=== PATIENT | female | born 1990 | race African-American/Black ===

== ENCOUNTER 2016-03-18 16:38 | Inpatient (IN) | payer OTHER ==
[~2016-03-18] VITALS: Ht 165.1 cm; Wt 75.2 kg
[2016-03-18 16:41] VITALS: BP 142/96; PULSE 94; RESP 16; TEMP 99.2; O2SAT 97
[2016-03-18 17:00] VITALS: BP 149/92; PULSE 90; RESP 16; O2SAT 98
[2016-03-18] MEDS ORDERED: SODIUM CHLORIDE 0.9% FLUSH 5 ML FLUSH IVF PRN (17:15)
[2016-03-18] MEDS ORDERED: MORPHINE SULFATE 4 MG/ML INJ IV PUSH ONE (17:15)
[2016-03-18] MEDS ORDERED: ONDANSETRON HCL 4 MG/2 ML VIAL IVP ONE (17:15)
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
[2016-03-18 17:26] VITALS: RESP 16; O2SAT 98
[2016-03-18 17:39] LABS: AUTOMATED NEUTROPHIL # 12.9 TH/MM3 (1.8-7.7); BASOPHIL % 0.3 % (0.0-2.0); EOSINOPHIL # 0.1 TH/MM3 (0-0.4); EOSINOPHIL % 0.6 % (0.0-4.0); HEMATOCRIT 41.8 % (35.0-46.0); HEMO FLAGS DIFF FINAL; LYMPH % 9.5 % (9.0-44.0); LYMPHOCYTE # 1.5 TH/MM3 (1.0-4.8); MEAN CELL VOLUME 92.7 FL (80.0-100.0); MEAN CORPUSCULAR HEMOGLOBIN 31.5 PG (27.0-34.0); MEAN CORPUSCULAR HGB CONC 33.9 % (32.0-36.0); MONO % 10.3 % (0.0-8.0); NEUT % 79.3 % (16.0-70.0); PLATELET COUNT 304 TH/MM3 (150-450); RED CELL DISTRIBUTION WIDTH 12.6 % (11.6-17.2); WHITE BLOOD COUNT 16.3 TH/MM3 (4.0-11.0)
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
[2016-03-18 17:52] LABS: APTT (PATIENT) 26.2 SEC (24.3-30.1); PROTHROMBIN TIME - PATIENT 10.8 SEC (9.8-11.6)
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
[2016-03-18 18:10] LABS: BICARBONATE 27.2 MEQ/L (21.0-32.0); POTASSIUM 3.6 MEQ/L (3.5-5.1)
[2016-03-18] MEDS ORDERED: CLINDAMYCIN INJ 600 MG in SODIUM CHLORIDE 0.9% INJ 100 ML IV ONE (19:00)
[2016-03-18 19:25] VITALS: BP 138/88; PULSE 97; RESP 15; O2SAT 97
[2016-03-18] MEDS ORDERED: SODIUM CHLORIDE 0.9% FLUSH 5 ML FLUSH FLUSH PRN (19:45)
[2016-03-18] MEDS ORDERED: ONDANSETRON HCL 4 MG/2 ML VIAL IVP PRN (19:45)
[2016-03-18] MEDS ORDERED: NALOXONE HCL 0.4 MG/ML AMP IV PRN (19:45)
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
[2016-03-18 20:11] LABS: BACTERIA, URINE OCC /hpf; BLOOD, URINE SMALL (NEG); COMMENT (UR) CULT NOT INDICATED; CULTURE IF INDICATED CULT NOT INDICATED; GLUCOSE,URINE NEG (NEG); KETONE, URINE 10 mg/dL (NEG); MUCUS URINE FEW /lpf (OCC); NITRITE,URINE NEG (NEG); SQUAMOUS EPITHELIAL CELL URINE 30 /hpf (0-5); URINE COLOR YELLOW (YELLW/STRAW)
[2016-03-18] MEDS: SODIUM CHLORIDE 0.9% FLUSH 5 ML FLUSH FLUSH SCH (21:34)
[2016-03-18] MEDS: MORPHINE SULFATE 4 MG/ML INJ IV PUSH PRN (22:55)
[2016-03-18] MEDS: CLINDAMYCIN INJ 900 MG in SODIUM CHLORIDE 0.9% INJ 100 ML IV SCH (23:07)
[2016-03-19] VITALS (8 sets, daily range): BP systolic 100–164; BP diastolic 49–103; PULSE 71–97; RESP 16–20; TEMP 96.6–99.7; O2SAT 96–100
[2016-03-19] MEDS ORDERED: SODIUM CHLOR 0.9% 1000 ML INJ 1,000 ML IV SCH (01:00)
[2016-03-19] MEDS: MORPHINE SULFATE 4 MG/ML INJ IV PUSH PRN ×6 (02:06→21:53)
[2016-03-19] MEDS: CLINDAMYCIN INJ 900 MG in SODIUM CHLORIDE 0.9% INJ 100 ML IV SCH ×3 (05:16→18:55)
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
[2016-03-19] MEDS ORDERED: MAGNESIUM HYDROXIDE SUSP 30 ML CUP PO PRN (08:15)
[2016-03-19] MEDS ORDERED: ONDANSETRON HCL 4 MG/2 ML VIAL IVP PRN (08:15)
[2016-03-19] MEDS ORDERED: BISACODYL 10 MG SUPP PR PRN (08:15)
[2016-03-19] MEDS ORDERED: SENNOSIDES 8.6 MG TAB PO PRN (08:15)
[2016-03-19] MEDS ORDERED: ACETAMINOPHEN 325 MG TAB PO PRN (08:15)
[2016-03-19] MEDS ORDERED: MORPHINE SULFATE 4 MG/ML INJ IV PRN (08:15)
[2016-03-19] MEDS: SODIUM CHLORIDE 0.9% FLUSH 5 ML FLUSH FLUSH SCH ×2 (08:17→20:01)
[2016-03-19] MEDS: DOCUSATE SODIUM 100 MG CAP PO SCH ×2 (10:05→20:00)
[2016-03-19] MEDS: NS + KCL 20 MEQ INJ 1,000 ML IV SCH ×2 (10:05→18:55)
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
[2016-03-19] MEDS ORDERED: HYDR1ELX PO (10:43)
[2016-03-19] MEDS ORDERED: methylPREDNISolone SOD SUCC 125 MG/2 ML VIAL IV PUSH ONE (10:45)
[2016-03-19] MEDS ORDERED: PROPOFOL 200 MG/20 ML AMP IV ONE (12:00)
[2016-03-19] MEDS ORDERED: LACTATED RINGER'S 1000 ML INJ 1,000 ML IV ONE ×2 (12:00)
[2016-03-19] MEDS ORDERED: PHENYLEPH/NS 1000 MCG/10 ML SYR IV ONE (12:00)
[2016-03-19] MEDS ORDERED: NEOSTIGMINE 3 MG/3 ML SYR IV ONE (12:00)
[2016-03-19] MEDS ORDERED: ONDANSETRON HCL 4 MG/2 ML VIAL IV PUSH ONE ×2 (12:00)
[2016-03-19] MEDS ORDERED: LIDOCAINE 2%/EPINEPHrine 1:100,000 30ML MDV ONE (15:18)
[2016-03-19] MEDS ORDERED: FAMOTIDINE 20 MG/2 ML VIAL ONE (15:19)
[2016-03-19] MEDS ORDERED: MIDAZOLAM HCL 2 MG/2 ML VIAL ONE (15:19)
[2016-03-19] MEDS ORDERED: ACETAMINOPHEN 1000 MG/100 ML VIAL IV ONE (15:19)
[2016-03-19] MEDS ORDERED: fentaNYL CITRATE 250 MCG/5 ML AMP ONE (15:19)
[2016-03-19] MEDS ORDERED: CHLORHEXIDINE GLUCONATE 0.12% 30 ML CUP ONE (15:20)
[2016-03-19] MEDS ORDERED: MICROFIBRILLAR COLLAGEN HEMOSTAT 1 GM PKT ONE (16:41)
[2016-03-19] MEDS ORDERED: *MEPERIDINE 25 MG INJ VIAL PERIprocedural Use ONLY ONE (17:55)
[2016-03-19] MEDS ORDERED: *LABETALOL HCL 100 MG/20 ML VIAL PERIprocedural Use ONLY ONE (18:00)
[2016-03-19] MEDS ORDERED: DO NOT ADM ANY ANTICOAGULANT DRUGS XX PRN (18:00)
[2016-03-19] MEDS: methylPREDNISolone SOD SUCC 125 MG/2 ML VIAL IV SCH (18:12)
[2016-03-19] MEDS ORDERED: ACETAMINOPHEN/HYDROcodone 325 MG/7.5 MG TAB PO PRN (18:15)
[2016-03-19] MEDS ORDERED: *morphine SULFATE 8 MG/ML PERIprocedure ONLY ONE (18:33)
[2016-03-20] VITALS: BP 157/96; PULSE 80; RESP 17; TEMP 97.3; O2SAT 97
[2016-03-20] MEDS: MORPHINE SULFATE 4 MG/ML INJ IV PUSH PRN ×4 (00:01→08:55)
[2016-03-20] MEDS: CLINDAMYCIN INJ 900 MG in SODIUM CHLORIDE 0.9% INJ 100 ML IV SCH ×2 (00:01→05:49)
[2016-03-20] MEDS: methylPREDNISolone SOD SUCC 125 MG/2 ML VIAL IV SCH ×2 (00:02→05:48)
[2016-03-20 04:00] VITALS: BP 151/98; PULSE 87; RESP 18; TEMP 96.5; O2SAT 98
--- NOTE | 2016-03-20 07:03 | HHI.PR ---
Subjective Remarks pod 1 s/p orif b/l mandible fractures pt seen and examined today, nurse at bedside AAOx3, NAD ambulating . tolerating po, voiding no complaints Objective Vital Signs Date Time Temp Pulse Resp B/P Pulse Ox O2 Delivery O2 Flow Rate FiO2 03/20/16 04:00 96.5 87 18 151/98 98 03/20/16 00:00 97.3 80 17 157/96 97 03/19/16 22:14 96.6 85 16 164/95 99 03/19/16 19:15 98.8 88 16 144/80 98 Room Air 03/19/16 19:00 87 16 141/87 97 Room Air 03/19/16 18:45 85 15 145/90 96 Room Air 03/19/16 18:30 88 15 146/89 95 Room Air 03/19/16 18:15 90 15 156/92 95 Room Air 03/19/16 18:00 94 15 160/105 94 Room Air 03/19/16 17:45 98 15 156/98 93 Room Air 03/19/16 17:38 98.0 111 16 156/100 100 Simple Mask 7 03/19/16 13:53 98.6 03/19/16 13:28 140/82 03/19/16 12:15 99.0 97 20 159/103 100 03/19/16 08:00 98.9 80 18 142/96 99 I/O 03/19/16 03/19/16 03/19/16 03/20/16 03/20/16 03/20/16 07:00 15:00 23:00 07:00 15:00 23:00 Intake Total 1635 ml 1100 ml 480 ml Output Total 675 ml Balance 1635 ml 425 ml 480 ml Intake Oral 0 ml 480 ml IV Total 1635 ml 100 ml Other 1000 ml Output Urine Total 375 ml Estimated Blood Loss 300 ml # Voids 2 1 1 # Bowel Movements 0 Result Diagram: 03/18/16 1725 03/18/16 1725 Objective Remarks right facial/mandible edema greater than left trach midline, neck soft all intraoral/facial wound margins well approximated, sutures intact tissues pink/well perfused bite in occlusion all wounds hemostatic no signs of infection, bleeding, pus Assessment and Plan Assessment and Plan pod 1 s/p orif b/l mandible fractures ok to d/c to home later this morning form oms standpoint f/up [address] bedolla [phone] mechanically soft diet maintain good oral hygiene no strenuous activity/exercises ice to b/l face/ x 24 hours 20 min on 20 min off, then warm compress 20 min on 20 min off Shaun Fenton DMD Mar 20, 2016 07:03
[2016-03-20 07:37] LABS: AUTOMATED NEUTROPHIL # 14.9 TH/MM3 (1.8-7.7); BASOPHIL % 0.1 % (0.0-2.0); HEMATOCRIT 34.9 % (35.0-46.0); HEMO FLAGS DIFF FINAL; LYMPH % 3.3 % (9.0-44.0); LYMPHOCYTE # 0.5 TH/MM3 (1.0-4.8); MEAN CELL VOLUME 92.8 FL (80.0-100.0); MEAN CORPUSCULAR HEMOGLOBIN 32.2 PG (27.0-34.0); MEAN CORPUSCULAR HGB CONC 34.7 % (32.0-36.0); MONO % 5.8 % (0.0-8.0); NEUT % 90.8 % (16.0-70.0); PLATELET COUNT 286 TH/MM3 (150-450); RED BLOOD COUNT 3.76 MIL/MM3 (4.00-5.30); RED CELL DISTRIBUTION WIDTH 12.3 % (11.6-17.2); WHITE BLOOD COUNT 16.5 TH/MM3 (4.0-11.0)
[2016-03-20 07:43] LABS: BICARBONATE 24.9 MEQ/L (21.0-32.0); MAGNESIUM 1.7 MG/DL (1.5-2.5); POTASSIUM 3.7 MEQ/L (3.5-5.1)
[2016-03-20 08:00] VITALS: PULSE 68; RESP 18; TEMP 98.1; O2SAT 97
[2016-03-20 08:30] VITALS: O2SAT 98
[2016-03-20] MEDS: DOCUSATE SODIUM 100 MG CAP PO SCH (08:55)
[2016-03-20] MEDS: SODIUM CHLORIDE 0.9% FLUSH 5 ML FLUSH FLUSH SCH (08:59)
[2016-03-20] MEDS: NS + KCL 20 MEQ INJ 1,000 ML IV SCH (09:00)
[2016-03-20 09:59] VITALS: BP 140/82
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
[2016-03-20] MEDS ORDERED: ACETAMINOPHEN 325MG/HYDROcodone 7.5MG/15ML UDC PO PRN ×2 (11:00)
[2016-03-20 12:00] VITALS: BP 111/70; PULSE 48; RESP 20; TEMP 97.9; O2SAT 97
[2016-03-20] MEDS ORDERED: methylPREDNISolone ACETATE 80 MG/ML VIAL IM ONE (12:00)
[2016-03-20 13:38] LABS: HEMOGLOBIN A1a 1.1 %; HEMOGLOBIN A1b 0.7 %; HEMOGLOBIN Ao 86.3 %; HEMOGLOBIN F 0.8 %; HEMOGLOBIN LA1C 2.4 %; HEMOGLOBIN P3 3.6 %
[2016-03-20] MEDS ORDERED: CEPHALEXIN MONOHYDRATE SUSP 250 MG/5 ML 100 ML BTL PO SCH (14:00)
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
== END 2016-03-20 15:52 | disposition home or self-care (01) | DRG 132 ==
LOC: NEPC 16:38 → NEDA 19:36 → OBSVTOIN 19:39 → NEDH 03-19 → HOCA 03-19 01:51
PROVIDERS: ADMIT Internal Medicine; ATTEND Internal Medicine
PROC: 0NST04Z Reposition Right Mandible with Internal Fixation Device, Open Approach (ICD-10-PCS; principal; 2016-03-18)
PROC: 0NSV04Z Reposition Left Mandible with Internal Fixation Device, Open Approach (ICD-10-PCS; 2016-03-18)
DX: S02.651A Fracture of angle of right mandible, initial encounter for closed fracture (principal); D72.829 Elevated white blood cell count, unspecified; S02.602A Fracture of unspecified part of body of left mandible, initial encounter for closed fracture; M26.4 Malocclusion, unspecified; Y04.2XXA Assault by strike against or bumped into by another person, initial encounter; Y93.89 Activity, other specified; Y92.89 Other specified places as the place of occurrence of the external cause; F17.210 Nicotine dependence, cigarettes, uncomplicated
CPT/HCPCS: 70450; 70486; 72125; 80048; 81001; 83036; 83735; 84703; 85025; 85610; 85730; 96374; 96375; C1713; J0131; J2175; J2250; J2270; J2370; J2405; J2710; J2930; J3010; J3480; J7030; J7120

== ENCOUNTER 2016-08-27 02:54 | Inpatient (IN) | payer MEDICAID, OTHER ==
[~2016-08-27] VITALS: Ht 165.1 cm; Wt 80.6 kg
[2016-08-27] VITALS (7 sets, daily range): BP systolic 122–152; BP diastolic 74–102; PULSE 70–102; RESP 13–18; TEMP 97.4–98.9; O2SAT 97–100
[~2016-08-27 02:54] MED LIST: HYDR1ELX PO
[2016-08-27] MEDS ORDERED: NALOXONE HCL 0.4 MG/ML AMP IV PRN ×2 (04:30→12:45)
[2016-08-27] MEDS ORDERED: methylPREDNISolone SOD SUCC 125 MG/2 ML VIAL IV PUSH ONE (04:30)
[2016-08-27] MEDS ORDERED: VANCOMYCIN INJ 1,000 MG in SODIUM CHLOR 0.9% 250 ML INJ 250 ML IV ONE (04:30)
[2016-08-27] MEDS ORDERED: SODIUM CHLOR 0.9% 250 ML INJ 250 ML IV ONE (04:30)
[2016-08-27] MEDS ORDERED: SODIUM CHLORIDE 0.9% FLUSH 10 ML FLUSH IV FLUSH PRN (04:30)
[2016-08-27] MEDS ORDERED: PIPERACIL-TAZO 2.25 GM PREMIX 50 ML IV ONE (04:30)
[2016-08-27 04:50] LABS: AUTOMATED NEUTROPHIL # 9.1 TH/MM3 (1.8-7.7); BASOPHIL # 0.1 TH/MM3 (0-0.2); BASOPHIL % 0.8 % (0.0-2.0); EOSINOPHIL # 0.4 TH/MM3 (0-0.4); EOSINOPHIL % 3.3 % (0.0-4.0); HEMATOCRIT 36.3 % (35.0-46.0); HEMO FLAGS DIFF FINAL; LYMPH % 15.7 % (9.0-44.0); MEAN CELL VOLUME 90.6 FL (80.0-100.0); MEAN CORPUSCULAR HEMOGLOBIN 30.1 PG (27.0-34.0); MEAN CORPUSCULAR HGB CONC 33.2 % (32.0-36.0); MONO % 8.6 % (0.0-8.0); NEUT % 71.6 % (16.0-70.0); PLATELET COUNT 334 TH/MM3 (150-450); RED BLOOD COUNT 4.01 MIL/MM3 (4.00-5.30); RED CELL DISTRIBUTION WIDTH 13.1 % (11.6-17.2); WHITE BLOOD COUNT 12.7 TH/MM3 (4.0-11.0)
[2016-08-27 05:08] LABS: ALT (GPT) 13 U/L (10-53); ANION GAP 9 MEQ/L (5-15); AST (GOT) 13 U/L (15-37); BICARBONATE 22.9 MEQ/L (21.0-32.0); BLOOD UREA NITROGEN 9 MG/DL (7-18); CHLORIDE 106 MEQ/L (98-107); GLOMERULAR FILTRATION RATE 125 ML/MIN (>89); POTASSIUM 3.5 MEQ/L (3.5-5.1); SODIUM (NA) 138 MEQ/L (136-145)
[2016-08-27 05:11] LABS: ALKALINE PHOSPHATASE 92 U/L (45-117); TOTAL BILIRUBIN ADULT 0.5 MG/DL (0.2-1.0)
--- NOTE | 2016-08-27 05:14 | RADRPT ---
EXAM DATE/TIME: 08/27/2016 04:56 [place] COMPARISON: No previous studies available for comparison. INDICATIONS : Swelling of the right mandible. MEDICAL HISTORY : None. SURGICAL HISTORY : None. ENCOUNTER: Initial ACUITY: 1 week PAIN SCORE: 4/10 LOCATION: Right mandible FINDINGS: Two view examination of the soft tissues of the neck demonstrates the hypopharyngeal airway to have a grossly normal configuration. The trachea is midline. No radiopaque foreign bodies are seen. There is some soft tissue swelling right submandibular region. CONCLUSION: 1. Soft tissue swelling. 2. No air way narrowing. Bud Skinner MD on August 27, 2016 at 5:11 Board Certified Radiologist. This report was verified electronically.
--- NOTE | 2016-08-27 07:53 | PD ---
HPI Chief Complaint: Facial Pain or Swelling Time Seen by Provider: 03:44 Travel History International Travel<30 days: No Contact w/Intl Traveler<30days: No Traveled to known affect area: No History of Present Illness HPI This is a 26-year-old female patient sent to the ER with a complaint of right jaw pain and swelling. Had a prior jaw fracture in the past and rods were placed. Patient experienced approximately 1 week of progressive facial swelling. She denies recent trauma fever or chills. Patient was seen at [facility] scan of the maxillofacial was done and it was reported that that was present of the abscess. White cell count was 13,000 patient was given IV Zosyn. This was discussed with Dr. Fenton and Dr. Santiago the plan was to transfer the patient to [facility] for further treatment and management. PFSH Past Medical History Cancer: No Cardiovascular Problems: No Diminished Hearing: No Genitourinary: No Musculoskeletal: No Neurologic: No Psychiatric: No Reproductive: No Respiratory: No ?: Not Past Surgical History Surgical History: No Previous Surgery Section: Yes (x2) Other Surgery: Yes (c section) Social History Alcohol Use: Yes (socially) Tobacco Use: Yes (1/2 ppd) Substance Use: No Allergies-Medications (Allergen,Severity, Reaction): Coded Allergies: No Known Allergies (Verified , 03/18/16) Reported Meds & Prescriptions Reported Meds & Active Scripts Active Data Data Last Documented VS Vital Signs Date Time Temp Pulse Resp B/P Pulse Ox O2 Delivery O2 Flow Rate FiO2 08/27/16 03:19 18 08/27/16 03:14 98.5 71 152/85 97 Orders Complete Blood Count With Diff (08/27/16 04:22) Comprehensive Metabolic Panel (08/27/16 04:22) Methylprednisolone So Succ Inj (Solumedr (08/27/16 04:30) Soft Tissue Neck (08/27/16 ) Sodium Chlor 0.9% 250 Ml Inj (Ns 250 Ml (08/27/16 04:30) Piperacil-Tazo 2.25 Gm Premix (Zosyn 2.2 (08/27/16 04:30) Vancomycin Inj (Vancomycin Inj) (08/27/16 04:30) Admit To Inpatient (08/27/16 ) Vital Signs (Adult) Q4H (08/27/16 04:26) Activity Oob With Assistance (08/27/16 04:26) Administrative Court Justice / Telemetry .CONTINUOUS (08/27/16 04:26) Diet Npo (08/27/16 Breakfast) Sodium Chloride 0.9% Flush (Ns Flush) (08/27/16 04:30) Sodium Chloride 0.9% Flush (Ns Flush) (08/27/16 09:00) Basic Metabolic Panel (Bmp) (08/28/16 06:00) Complete Blood Count With Diff (08/28/16 06:00) Case Management Consult (08/27/16 04:26) Naloxone Inj (Narcan Inj) (08/27/16 04:30) Inpatient Certification (08/27/16 ) Consult Oral, Facial Surgery (08/27/16 ) Admit Order (Ed Use Only) (08/27/16 04:28) Labs Laboratory Tests Test 08/27/16 04:29 White Blood Count 12.7 TH/MM3 Red Blood Count 4.01 MIL/MM3 Hemoglobin 12.1 GM/DL Hematocrit 36.3 % Mean Corpuscular Volume 90.6 FL Mean Corpuscular Hemoglobin 30.1 PG Mean Corpuscular Hemoglobin 33.2 % Concent Red Cell Distribution Width 13.1 % Platelet Count 334 TH/MM3 Mean Platelet Volume 8.4 FL Neutrophils (%) (Auto) 71.6 % Lymphocytes (%) (Auto) 15.7 % Monocytes (%) (Auto) 8.6 % Eosinophils (%) (Auto) 3.3 % Basophils (%) (Auto) 0.8 % Neutrophils # (Auto) 9.1 TH/MM3 Lymphocytes # (Auto) 2.0 TH/MM3 Monocytes # (Auto) 1.1 TH/MM3 Eosinophils # (Auto) 0.4 TH/MM3 Basophils # (Auto) 0.1 TH/MM3 CBC Comment DIFF FINAL Differential Comment Sodium Level 138 MEQ/L Potassium Level 3.5 MEQ/L Chloride Level 106 MEQ/L Carbon Dioxide Level 22.9 MEQ/L Anion Gap 9 MEQ/L Blood Urea Nitrogen 9 MG/DL Creatinine 0.68 MG/DL Estimat Glomerular Filtration 125 ML/MIN Rate Random Glucose 77 MG/DL Calcium Level 8.6 MG/DL Total Bilirubin 0.5 MG/DL Aspartate Amino Transf 13 U/L (AST/SGOT) Alanine Aminotransferase 13 U/L (ALT/SGPT) Alkaline Phosphatase 92 U/L Total Protein 7.2 GM/DL Albumin 3.2 GM/DL Neyda Ho MD Aug 27, 2016 07:53
--- NOTE | 2016-08-27 08:09 | MB ---
cc: CLIF FENTON DMD DATE OF CONSULTATION August 27, 2016 REASON FOR CONSULTATION Right mandible abscess. HISTORY OF PRESENT ILLNESS This is a 26-year-old female who in February of 2016 underwent open reduction, internal fixation of bilateral mandible fractures. She went to [facility], then transferred over here to [place] where the procedure was done. I have seen and examined this patient this morning. Her nurses are at bedside. She is alert, awake and oriented x 3, in no acute distress. Denies any fever, chills, nausea, vomiting, any shortness of breath, any difficulty breathing or swallowing. She reports that the swelling onset started on the right side of the mandible approximately a week ago. The patient was asked why she did not come to our office to get evaluation and treatment, she says she does not know. PAST MEDICAL HISTORY Denies. MEDICATIONS Denies. ALLERGIES Denies. SOCIAL HISTORY Smoking cigarettes. Positive for alcohol. Denies any illicit drug abuse. EXAMINATION The patient has a swelling on the right side of the face at the mandible region extending down into the neck. It is soft and it is tender to palpation. It is edematous. Trachea is in midline. No neck edema. Intraorally she has got some trismus that is secondary to the swelling on the right side of the mandible. No elevation of the floor of the mouth or the tongue. Tenderness to palpation intraorally. Bite appears to be normal. No pus noted at this time. IMAGING STUDIES CT scan of the facial bones from [facility] shows radiolucency around the plate and the screws. There appears to be a collection on the right side of the mandible in the region of the plate. She also appears to have a tooth in this region, the tooth that is sitting there also has some radiolucency around it. White count this morning here at [place] was 12.7 with an H&H of 12.1 and 36.3 with platelets of 334. IMPRESSION AND PLAN This is a 26-year female who underwent bilateral open reduction and internal fixation of her mandible fractures in February of 2016. Noncompliant. Continues to smoke. Very poor oral hygiene in the mouth. Multiple decayed teeth noted. Now presents with what appears to be hardware failure on the right side of the mandible. We will plan for removal of that hardware, possible extraction of necessary teeth, incision and drainage of that abscess and possible been replating as required. The benefits, risks and indications of the procedure, the procedure in detail and the options of no treatment were all discussed with this patient which were not limited to postop pain, infection, bleeding, damage to adjacent soft tissue, hard tissue, anesthesia complications. All questions and concerns were addressed. Clif Fenton DMD RRT/DOTTIE /7:16 AM /8:00 AM
[2016-08-27] MEDS: SODIUM CHLORIDE 0.9% FLUSH 10 ML FLUSH IV FLUSH SCH ×2 (08:54→21:00)
[2016-08-27] MEDS ORDERED: DEXAMETHASONE SOD PHOS 4 MG/ML VIAL IV ONE (09:45)
[2016-08-27] MEDS ORDERED: NEOSTIGMINE 3 MG/3 ML SYR IV ONE (10:36)
[2016-08-27] MEDS ORDERED: ONDANSETRON HCL 4 MG/2 ML VIAL IV PUSH ONE (10:36)
[2016-08-27] MEDS ORDERED: PHENYLEPH/NS 1000 MCG/10 ML SYR IV ONE (10:36)
[2016-08-27] MEDS ORDERED: PROPOFOL 200 MG/20 ML AMP IV ONE (10:36)
[2016-08-27] MEDS ORDERED: KETOROLAC TROMETHAMINE 30 MG/ML (IVP) VIAL IVP PRN (12:45)
--- NOTE | 2016-08-27 12:55 | HHI.HP ---
HPI Service [facility] Primary Care Physician No Primary Care Physician Admission Diagnosis buccal space abscess histiory of jaW FRACTURE Diagnoses: (1) Abscess of buccal cavity Chief Complaint: Oral and right facial swelling and pain Travel History International Travel<30 Days: No Contact w/Intl Traveler <30 Da: No Traveled to Known Affected Are: No History of Present Illness 26-year-old female with a recent surgical history for bilateral mandibular fracture status post ORIF 03/20/16 was transfer from an outside facility to [facility] for evaluation of right facial swelling and buccal space abscess. Patient is stated at on 08/21/16 she noticed right facial swelling along with oral pain however the following day she had worsening facial swelling associated with drooling and severe pain rated 8/10 in intensity , which was not relieved with ibuprofen. She denies any febrile episode but had decrease appetite. Patient is currently nothing by mouth pending further evaluation for oromaxillofacial surgery plan to take her in for I&D. She has no other issues Review of Systems Except as stated in HPI: all other systems reviewed are Neg Past Family Social History Past Medical History No current medical history Past Surgical History Open reduction and fixation of bilateral mandibular fracture 03/20/16 2 Reported Medications Ibuprofen Allergies: Coded Allergies: No Known Allergies (Verified , 03/18/16) Family History Multiple family members with heart attacks in their 30s and 40s Family history positive for diabetes, hypertension as well . Social History Tobacco: Smokes 6-10 cigarettes per day Alcohol: Drinks socially about 2 times a week Illicit Drugs: Denies Physical Exam Vital Signs Vital Signs Date Time Temp Pulse Resp B/P Pulse Ox O2 Delivery O2 Flow Rate FiO2 08/27/16 07:45 70 16 122/74 100 Room Air 08/27/16 03:19 18 08/27/16 03:14 98.5 71 18 152/85 97 Physical Exam GENERAL: This is a well-nourished, well-developed patient, in no apparent distress. SKIN: No rashes, ecchymoses or lesions. Cool and dry. HEAD: Atraumatic. Normocephalic. No temporal or scalp tenderness. EYES: Pupils equal round and reactive. Extraocular motions intact. No scleral icterus. No injection or drainage. ENT: Nose without bleeding, purulent drainage or septal hematoma. Oral facial swelling right side. NECK: Trachea midline. No JVD or lymphadenopathy. Supple, nontender, no meningeal signs. CARDIOVASCULAR: Regular rate and rhythm without murmurs, gallops, or rubs. RESPIRATORY: Clear to auscultation. Breath sounds equal bilaterally. No wheezes , rales, or rhonchi. GASTROINTESTINAL: Abdomen soft, non-tender, nondistended. No hepato-splenomegaly , or palpable masses. No guarding. MUSCULOSKELETAL: Extremities without clubbing, cyanosis, or edema. No joint tenderness, effusion, or edema noted. No calf tenderness. Negative Homans sign bilaterally. NEUROLOGICAL: Awake and alert. Cranial nerves II through XII intact. Motor and sensory grossly within normal limits. Five out of 5 muscle strength in all muscle groups. Normal speech. Laboratory Laboratory Tests Test 08/27/16 04:29 White Blood Count 12.7 Red Blood Count 4.01 Hemoglobin 12.1 Hematocrit 36.3 Mean Corpuscular Volume 90.6 Mean Corpuscular Hemoglobin 30.1 Mean Corpuscular Hemoglobin 33.2 Concent Red Cell Distribution Width 13.1 Platelet Count 334 Mean Platelet Volume 8.4 Neutrophils (%) (Auto) 71.6 Lymphocytes (%) (Auto) 15.7 Monocytes (%) (Auto) 8.6 Eosinophils (%) (Auto) 3.3 Basophils (%) (Auto) 0.8 Neutrophils # (Auto) 9.1 Lymphocytes # (Auto) 2.0 Monocytes # (Auto) 1.1 Eosinophils # (Auto) 0.4 Basophils # (Auto) 0.1 CBC Comment DIFF FINAL Differential Comment Sodium Level 138 Potassium Level 3.5 Chloride Level 106 Carbon Dioxide Level 22.9 Anion Gap 9 Blood Urea Nitrogen 9 Creatinine 0.68 Estimat Glomerular Filtration 125 Rate Random Glucose 77 Calcium Level 8.6 Total Bilirubin 0.5 Aspartate Amino Transf 13 (AST/SGOT) Alanine Aminotransferase 13 (ALT/SGPT) Alkaline Phosphatase 92 Total Protein 7.2 Albumin 3.2 Result Diagram: 08/27/16 0429 08/27/16428 Assessment and Plan Problem List: (1) Abscess of buccal cavity ICD Code: K12.2 Status: Acute Assessment and Plan 26-year-old female with Abscess of Buccal cavity Outside reports including CT scan reviewed Oral maxillofacial surgery consultation pending for evaluation for I&D Status post vancomycin and Zosyn 1 in ED, will start Unasyn IV pending culture report Start Decadron, parenteral pain medications Peridex scheduled DVT prophylaxis Encourage ambulation GI prophylaxis PPI Code Status Full code Discussed Condition With Patient Physician Certification 2 Midnight Certification Type: Admission for Inpatient Services Order for Inpatient Services The services are ordered in accordance with Medicare regulations or non- Medicare payer requirements, as applicable. In the case of services not specified as inpatient-only, they are appropriately provided as inpatient services in accordance with the 2-midnight benchmark. Estimated LOS (days): 2 days is the estimated time the patient will need to remain in the hospital, assuming treatment plan goals are met and no additional complications. Post-Hospital Plan: Not yet determined Bud Ponce MD Aug 27, 2016 12:55
[2016-08-27] MEDS: KETOROLAC TROMETHAMINE 30 MG/ML (IVP) VIAL IVP PRN (13:51)
[2016-08-27] MEDS ORDERED: CHLORHEXIDINE GLUCONATE 0.12% 15 ML CUP ONE (14:35)
[2016-08-27] MEDS ORDERED: LIDOCAINE HCL 2% 50 ML VIAL ONE (14:36)
[2016-08-27] MEDS ORDERED: ACETAMINOPHEN 325 MG TAB PO PRN (15:00)
[2016-08-27] MEDS ORDERED: TEMAZEPAM 15 MG CAP PO PRN (15:00)
[2016-08-27] MEDS ORDERED: HYDROmorphone HCL PF 1 MG/ML VIAL IV PRN (15:00)
[2016-08-27] MEDS ORDERED: ONDANSETRON HCL 4 MG/2 ML VIAL IV PRN (15:00)
[2016-08-27] MEDS ORDERED: BUPIVACAINE/EPINEPHRINE 0.5% 50 ML VIAL ONE (15:35)
[2016-08-27] MEDS ORDERED: FAMOTIDINE 20 MG/2 ML VIAL ONE (15:40)
[2016-08-27] MEDS ORDERED: DEXAMETHASONE SOD PHOS 4 MG/ML VIAL ONE (15:40)
[2016-08-27] MEDS ORDERED: ACETAMINOPHEN 1000 MG/100 ML VIAL IV ONE (16:11)
[2016-08-27] MEDS ORDERED: LIDOCAINE 1%/EPINEPHrine 1:100,000 SOLN 30 ML VIAL INFIL ONE (16:46)
[2016-08-27] MEDS ORDERED: DO NOT ADM ANY ANTICOAGULANT DRUGS PRN (18:00)
[2016-08-27] MEDS ORDERED: PROPOFOL 1000 MG/100 ML INJ 100 ML ONE (18:42)
[2016-08-27] MEDS ORDERED: methylPREDNISolone SOD SUCC 125 MG/2 ML VIAL ONE (18:48)
[2016-08-27] MEDS ORDERED: MIDAZOLAM HCL 2 MG/2 ML VIAL ONE (18:54)
[2016-08-27] MEDS ORDERED: fentaNYL CITRATE 250 MCG/5 ML AMP ONE (18:55)
[2016-08-27] MEDS ORDERED: *LABETALOL HCL 100 MG/20 ML VIAL PERIprocedural Use ONLY ONE (19:08)
[2016-08-27 19:54] LABS: BLOOD GAS BASE EXCESS -3.8 mmol/L (-2-2); BLOOD GAS CARBOXYHEMOGLOBIN 1.3 % (0-4); BLOOD GAS HCO3 21 mmol/L (22-26); BLOOD GAS METHEMOGLOBIN 1.2 % (0-2); BLOOD GAS O2 HGB SATURATION 97 % (90-100); BLOOD GAS OXYGEN CONTENT 16.1 Vol % (12.0-20.0); BLOOD GAS PCO2 44 mmHg (38-42); BLOOD GAS PO2 196 mmHg (61-120); BLOOD GAS TOTAL HGB 11.6 G/DL (12.0-16.0); CRITICAL VALUE NO; OXYGEN DEVICE VENTILATOR; TEMP CORR TO 98.6
[2016-08-27 19:55] LABS: DRAW SITE RT RADIAL; FIO2 50 %; NUMBER OF ARTERIAL PUNCTURES 1; STAT NO; VENT SETTINGS 500/12/PEEP 5
[2016-08-27] MEDS: CHLORHEXIDINE GLUCONATE 0.12% 15 ML CUP SWISH-SPIT SCH (21:00)
[2016-08-27] MEDS ORDERED: fentaNYL DRIP 250 ML IV SCH (21:30)
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
[2016-08-27] MEDS: PROPOFOL 1000 MG/100 ML IV SCH (21:50)
[2016-08-27] MEDS: AMPICILLIN-SULBACTAM INJ 3 GM in SODIUM CHLORIDE 0.9% INJ 100 ML IV SCH (21:51)
[2016-08-28] VITALS (17 sets, daily range): BP systolic 95–155; BP diastolic 51–90; PULSE 48–105; RESP 12–22; TEMP 97.1–99.1; O2SAT 99–100
[2016-08-28] MEDS ORDERED: POTASSIUM PHOSPHATE MONOBASIC 500 MG TAB PO/TUBE PRN (00:15)
[2016-08-28] MEDS ORDERED: MAGNESIUM OXIDE 400 MG TAB PO PRN (00:15)
[2016-08-28] MEDS ORDERED: SODIUM PHOSPHATE INJ 30 MMOL in SODIUM CHLOR 0.9% 250 ML INJ 240 ML IV PRN (00:15)
[2016-08-28] MEDS ORDERED: MAGNESIUM SULFATE INJ 2 GM in SODIUM CHLORIDE 0.9% INJ 96 ML IV PRN (00:15)
[2016-08-28] MEDS ORDERED: POTASSIUM PHOSPHATE INJ 30 MMOL in SODIUM CHLOR 0.9% 250 ML INJ 250 ML IV PRN (00:15)
[2016-08-28] MEDS ORDERED: POTASSIUM CHLOR 20 MEQ PREMIX 100 ML IV PRN ×2 (00:15)
[2016-08-28] MEDS ORDERED: DEXTROSE 50% IN WATER 50 ML VIAL(D50) IV PRN (00:15)
[2016-08-28] MEDS ORDERED: POTASSIUM PHOSPHATE MONOBASIC 500 MG TAB PO PRN (00:15)
[2016-08-28] MEDS ORDERED: GLUCAGON 1 MG/ML VIAL OTHER PRN (00:15)
[2016-08-28] MEDS ORDERED: POTASSIUM CHLOR 40 MEQ PREMIX 100 ML IV PRN ×2 (00:15)
[2016-08-28] MEDS ORDERED: MAGNESIUM SULFATE INJ 4 GM in SODIUM CHLORIDE 0.9% INJ 92 ML IV PRN (00:15)
[2016-08-28] MEDS ORDERED: POTASSIUM CHLORIDE 25 MEQ EFFERVESCENT TAB PO PRN (00:15)
[2016-08-28] MEDS ORDERED: RESP: ALBUTEROL 2.5 MG/3 ML NEB (PRN) NEB (00:15)
[2016-08-28] MEDS: methylPREDNISolone SOD SUCC 125 MG/2 ML VIAL IV SCH ×2 (00:38→06:45)
[2016-08-28] MEDS: D5-1/2 NS + KCL 20 MEQ INJ 1,000 ML IV SCH ×2 (00:38→20:12)
[2016-08-28] MEDS: PROPOFOL 1000 MG/100 ML IV SCH ×2 (00:38→04:31)
[2016-08-28] MEDS: AMPICILLIN-SULBACTAM INJ 3 GM in SODIUM CHLORIDE 0.9% INJ 100 ML IV SCH ×4 (04:31→20:09)
[2016-08-28 05:25] LABS: AUTOMATED NEUTROPHIL # 12.9 TH/MM3 (1.8-7.7); BASOPHIL % 0.1 % (0.0-2.0); EOSINOPHIL % 0.1 % (0.0-4.0); HEMATOCRIT 34.5 % (35.0-46.0); HEMO FLAGS DIFF FINAL; LYMPH % 6.6 % (9.0-44.0); MEAN CELL VOLUME 91.6 FL (80.0-100.0); MEAN CORPUSCULAR HEMOGLOBIN 29.3 PG (27.0-34.0); MONO % 5.2 % (0.0-8.0); PLATELET COUNT 307 TH/MM3 (150-450); RED BLOOD COUNT 3.77 MIL/MM3 (4.00-5.30); WHITE BLOOD COUNT 14.7 TH/MM3 (4.0-11.0)
[2016-08-28 05:48] LABS: BICARBONATE 24.1 MEQ/L (21.0-32.0); POTASSIUM 4.2 MEQ/L (3.5-5.1)
--- NOTE | 2016-08-28 06:21 | RADRPT ---
EXAM DATE/TIME: 08/28/2016 05:36 [place] COMPARISON: No previous studies available for comparison. INDICATIONS : Respiratory failure. MEDICAL HISTORY : None. SURGICAL HISTORY : None. ENCOUNTER: Initial ACUITY: 1 day PAIN SCORE: Non-responsive. LOCATION: Bilateral chest FINDINGS: A single view of the chest demonstrates the lungs to be symmetrically aerated with linear atelectatic changes projecting from the right hilum extending into the right upper lung. Otherwise, no confluent infiltrate or effusion. Heart size is normal. Endotracheal tube is identified with the tip at the cl avicular heads. CONCLUSION: 1. Linear atelectatic changes in the right perihilar distribution extending up into the right upper l linette. 2. No confluent infiltrate or effusion. 3. Endotracheal tube appropriately positioned above the [place] with the tip at the clavicular heads. Gamaliel Guevara MD on August 28, 2016 at 6:16 Board Certified Radiologist. This report was verified electronically.
[2016-08-28] MEDS: INSULIN ASPART SUPPLEMENTAL SCALE SQ SCH ×4 (06:45→20:53)
--- NOTE | 2016-08-28 07:41 | HHI.PR ---
Subjective Remarks POD1 s/p removal of failed hardware right mandible angle, extraction of tooth #32, I&D right submandibular space abscess CR right mandible lola fracture pt seen and examined, nurse at bedside intubated nasally, sedated/vented no acute overnight events Objective Vital Signs Date Time Temp Pulse Resp B/P Pulse Ox O2 Delivery O2 Flow Rate FiO2 08/28/16 06:00 55 08/28/16 04:00 30 08/28/16 04:00 97.1 56 12 95/51 100 08/28/16 04:00 56 08/28/16 03:48 100 30 08/28/16 02:00 57 08/28/16 00:00 30 08/28/16 00:00 97.9 69 12 115/63 100 08/28/16 00:00 69 08/27/16 23:44 100 30 08/27/16 22:00 102 08/27/16 20:30 40 08/27/16 20:30 98.9 84 13 150/102 100 08/27/16 20:30 100 Mechanical Ventilator 40 08/27/16 20:10 100 100 08/27/16 20:00 79 14 162/95 100 Mechanical Ventilator 50 08/27/16 20:00 50 08/27/16 19:45 79 14 138/92 100 Mechanical Ventilator 50 08/27/16 19:30 79 14 157/88 100 Mechanical Ventilator 50 08/27/16 19:15 74 14 155/104 100 Mechanical Ventilator 50 08/27/16 19:00 74 14 155/104 100 Mechanical Ventilator 50 08/27/16 18:40 97.8 71 14 121/66 100 Mechanical Ventilator 50 08/27/16 18:40 50 08/27/16 12:00 97.4 83 16 131/80 100 08/27/16 07:45 70 16 122/74 100 Room Air I/O 08/27/16 08/27/16 08/27/16 08/28/16 08/28/16 08/28/16 07:00 15:00 23:00 07:00 15:00 23:00 Intake Total 1201 ml 696 ml Output Total 750 ml 800 ml Balance 451 ml -104 ml Intake IV Total 201 ml 696 ml TPN/PPN 400 ml Other 600 ml Output Urine Total 725 ml 800 ml Estimated Blood Loss 25 ml # Bowel Movements 0 0 Result Diagram: 7/7/17 0517 08/28/16516 Objective Remarks neck dressing/ [address], no active pus/drainage notged neck softer, residual edema noted, trach midline intraorally, tissues pink/well perfused bite in occlusion IMF wires.arch bars in position no active discharge/heme wbc increase - c/w surgical procedure and steroids wire cutters at bedside micro pending Assessment and Plan Assessment and Plan POD1 s/p removal of failed hardware right mandible angle, extraction of tooth #32, I&D right submandibular space abscess CR right mandible lola fracture ok to wean to extubate from OMS standpoint advise Infectious diseases consult keep wire cutters at bedside will follow Shaun Fenton DMD Aug 28, 2016 07:41
[2016-08-28] MEDS ORDERED: methylPREDNISolone ACETATE 80 MG/ML VIAL IM ONE (08:00)
[2016-08-28] MEDS: CHLORHEXIDINE 0.12% (ORAL KIT) 15 ML CUP MT SCH ×2 (08:00→20:00)
[2016-08-28] MEDS: CHLORHEXIDINE GLUCONATE 0.12% 15 ML CUP SWISH-SPIT SCH ×2 (08:54→21:00)
[2016-08-28] MEDS: PANTOPRAZOLE SOD 40 MG DELAYED RELEASE TAB PO SCH (08:54)
[2016-08-28] MEDS: SODIUM CHLORIDE 0.9% FLUSH 10 ML FLUSH IV FLUSH SCH ×2 (08:54→20:10)
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
--- NOTE | 2016-08-28 15:23 | MP ---
cc: CLIF FENTON DMD DATE OF SURGERY: 08/27/2016. PREOPERATIVE DIAGNOSIS: 1. Failed hardware right mandible angle region also tooth number 32. 2. Extraction of tooth #32 fracture 3. Right submandibular space abscess. POSTOPERATIVE DIAGNOSIS: 1. Failed hardware right mandible angle region. 2. Extraction of tooth #32 fracture 3. Right submandibular space abscess. OPERATIVE PROCEDURE PERFORMED: 1. Removal of the right mandible angle plate / screws. 2. Extraction of tooth #32. 3. Incision and drainage of the right submandibular abscess. 4. Closed reduction of the right mandible angle fracture. SURGEON: Clif Fenton DMD. SODA WORKER: Dr. Noel. ANESTHESIA General also 2% lidocaine with 1:100,000 epinephrine approximately 6 mL. COMPLICATIONS: None. ESTIMATED BLOOD LOSS: Approximately 20 cc. DISPOSITION: The patient still intubated taken to the intensive care unit. INDICATIONS FOR THE PROCEDURE: This is a 26-year-old female who had undergone bilateral open reduction internal fixation of her mandible angle fractures February of 2016. The patient had subsequent follow up in our office and was advised to have that tooth #32 extracted. She failed to do so. Now she presented with swelling on the right submandibular region, failure of the hardware and involvement of tooth #32. In order to restore proper form and function, it is necessary for the patient to undergo the above-listed procedures. The benefits, risks, indications the procedure, the procedure in detail and the options of no treatment were discussed with this patient. The risks are not limited to any postoperative pain, infection, bleeding, damage to the adjacent teeth, soft tissue, hard tissue, anesthesia complications, numbness, further surgery as required. All questions and concerns were addressed. Consent is signed and in the chart. DESCRIPTION OF THE PROCEDURE IN DETAIL: The patient was met once again preoperatively. The right side of the face was marked now. All questions and concerns were addressed. Taken to operating room and put on the table in the supine position. She was intubated nasally with a glide scope. The eyes were taped shut. The head was wrapped and the tube was secured in a standard OMS fashion. All pressure points were padded. The patient was prepped with Betadine solution. At this time, a time-out was taken to identify the patient, the site, the procedure and the surgeon and all were in agreement. The patient was draped in the normal sterile fashion. Examination under anesthesia showed fluctuance right around the submandibular region. At this point, we took an 18 gauge needle on a 10 mL syringe and placed it in the right submandibular region and pulled back on it and pus came out which was sent for culture. A 15 blade was used to make a stab incision in the same region and then with a hemostat going up superiorly to the inferior border of the mandible made on the lateral aspect and a copious amount of pus just came out. Then the hemostat was directed medially, laterally and inferiorly and again all remaining pus came out. Then we went a little bit more medially, a little bit more inferiorly with another 15 blade stab incision. Again the same procedure was done. Any residual pus came out at that site. This was a significant decrease in the right submandibular region swelling and it was much more soft now. Bite block was placed in the left side of the mouth. Back of the throat was suctioned and moistened Ray-Pedrito were used as a throat pack. Bite block was removed and the mandible was gently manipulated to check for mobility. The mandible appeared to be intact. There was no false point of motion at this point. Bite block was placed in the mouth and the mouth was irrigated with Peridex solution. 2% lidocaine with 100,000 epinephrine was injected to the maxillary and mandibular vestibules and also an inferior alveolar block. Arch bars were placed the maxillary and mandibular arches and secured into position using 24-gauge wires. Attention was diverted to the right side of the mandible. A Bovie was used to make an incision. The region of the previous incision site also lateral hockey stick so we could facilitate the extraction of the tooth number 32, which was now visible clinically. A periosteal elevator was used to reflect off the soft tissue and the periosteum. There was a lot of inflammatory tissue and granulation tissue all noted around that region. We reflected off the soft tissue going from superior region of the external oblique ridge following that plate that is already encountered now going inferiorly and once that was done, elevator forceps was used to extract that tooth. Once the tooth was extracted again the bite block was taken out. Again we manipulated the jaw and even placing the fingers in the region of the condyles to check for the segment. The whole segment was moving in unison in one piece that did not appear to be a false point of motion. Once the plate was exposed and the five screws identified, two stab incisions were made, one superior and inferior region of the plate and a trocar was introduced and the screwdriver was used to remove the superior screw and the inferior screw. Once this was done, a periosteal elevator was used to pry the plate right off the bone. There was no adhesion of the plate and the remaining screws to that bone. The plate was removed and all five screws were all accounted for. There did not appear to be at this point any gross plate adhesion or screw adhesion to that point. A lot of granulation tissue was all curetted out at that site. The fracture appeared to be healing and stable. Good healthy bleeding bone was noted. The bite block was removed and again the mandible was manipulated and moved. There was no false point of motion of the mandible. The whole mandible moved in one piece and I moved the mandible lateral excursions protrusive and retrusive excursion. The condyles were removing in sync with the whole mandible and it was in one piece. Based on this, we felt there was no need to plate the mandible. The site was all irrigated with saline solution and Peridex solution. It was clean and healthy at this point. The site was now closed with 3-0 chromic sutures. The bite block was removed. Both the throat packs were now removed. The back of the throat was suctioned. The patient was put back into her normal bite. The bite was in occlusion. Note that the patient had a pre-existing anterior open bite. Finally the patient was placed into intermaxillary fixation as a closed reduction at this point. This is so that it gives time to continue with healing after the procedure. A [place] drain was placed in the two stab incisions that were made on the right side of the neck and secured into position using 2-0 silk sutures. The site was also irrigated with saline solution. The patient will be sent to the unit intubated and we will plan for extubation the next, which will be August 28, 2016. The pus was sent for cultures. All sponge and needle counts were accounted for. The patient tolerated the procedure well. No complications noted. Clif Fenton DMD RRT/JCC /7:02 AM /3:03 PM
[2016-08-28] MEDS ORDERED: hydrALAZINE HCL 20 MG/ML VIAL IV PUSH PRN (16:15)
[2016-08-28] MEDS: KETOROLAC TROMETHAMINE 30 MG/ML (IVP) VIAL IVP PRN (20:11)
[2016-08-29] VITALS (11 sets, daily range): BP systolic 106–136; BP diastolic 56–90; PULSE 60–80; RESP 14–20; TEMP 97.1–98.7; O2SAT 97–100
[2016-08-29] MEDS: AMPICILLIN-SULBACTAM INJ 3 GM in SODIUM CHLORIDE 0.9% INJ 100 ML IV SCH ×4 (02:16→21:40)
[2016-08-29] MEDS: INSULIN ASPART SUPPLEMENTAL SCALE SQ SCH ×4 (06:22→21:00)
--- NOTE | 2016-08-29 07:21 | HHI.PR ---
Subjective Remarks POD s/p removal of failed hardware right mandible angle, extraction of tooth #32, I&D right submandibular space abscess CR right mandible lola fracture pt seen and examined, nurse at bedside extubated yesterday, ambulating, tolerating po denies f/c/n/v/sob/difficulty breathing no acute overnight events Objective Vital Signs Date Time Temp Pulse Resp B/P Pulse Ox O2 Delivery O2 Flow Rate FiO2 08/29/16 06:00 64 08/29/16 04:00 98.2 60 15 106/56 97 08/29/16 04:00 60 08/29/16 02:00 66 08/29/16 00:00 98.2 80 20 136/83 99 08/29/16 00:00 80 08/28/16 22:00 102 08/28/16 21:36 100 21 08/28/16 20:00 100 08/28/16 20:00 99.1 100 22 151/82 99 08/28/16 19:00 100 Room Air 08/28/16 18:23 20 08/28/16 18:00 105 08/28/16 16:00 67 08/28/16 16:00 98.8 98 12 155/84 100 08/28/16 14:00 93 08/28/16 12:38 100 Nasal Cannula 3 08/28/16 12:10 Nasal Cannula 30 08/28/16 12:00 98.1 90 12 143/90 100 08/28/16 12:00 90 08/28/16 11:50 100 30 08/28/16 10:00 49 08/28/16 08:05 100 30 08/28/16 08:00 97.8 54 12 95/54 100 08/28/16 08:00 48 I/O 08/28/16 08/28/16 08/28/16 08/29/16 08/29/16 08/29/16 07:00 15:00 23:00 07:00 15:00 23:00 Intake Total 696 ml 184 ml 1373 ml 743 ml Output Total 800 ml 400 ml 900 ml 350 ml Balance -104 ml -216 ml 473 ml 393 ml Intake Oral 400 ml 300 ml IV Total 696 ml 184 ml 973 ml 443 ml Output Urine Total 800 ml 400 ml 900 ml 350 ml Drainage Total 0 ml 0 ml # Bowel Movements 0 0 0 Result Diagram: 08/28/1651608/28/16516 Objective Remarks neck dressing/ [address], no active pus/drainage noted neck softer, residual edema noted, trach midline intraorally, tissues pink/well perfused bite in occlusion IMF wires.arch bars in position no active discharge/heme wire cutters at bedside GRAM STAIN Final 08/28/16-0856 MANY WBC'S MODERATE MIXED JOE WITH NO PREDOMINANT MORPHOLOGY FLUID CULTURE Preliminary 08/28/16-1403 NO GROWTH IN 24 HOURS. no fungi/afb - final pending Assessment and Plan Assessment and Plan POD2 s/p removal of failed hardware right mandible angle, extraction of tooth #32, I&D right submandibular space abscess CR right mandible lola fracture Clinically better Infectious diseases consult pending keep wire cutters at bedside removed both mary drains d/w pt the importance of being compliant with our recommendations, risk of recurrent infection/further surgery/ if non compliant Ok to transfer to regular floor from oms standpoint plan for d/c tomorrow/wednesday will follow Shaun Fenton DMD Aug 29, 2016 07:21
[2016-08-29] MEDS: CHLORHEXIDINE 0.12% (ORAL KIT) 15 ML CUP MT SCH (08:00)
[2016-08-29] MEDS: CHLORHEXIDINE GLUCONATE 0.12% 15 ML CUP SWISH-SPIT SCH ×2 (08:11→21:00)
[2016-08-29] MEDS: PANTOPRAZOLE SOD 40 MG DELAYED RELEASE TAB PO SCH (08:11)
[2016-08-29] MEDS: SODIUM CHLORIDE 0.9% FLUSH 10 ML FLUSH IV FLUSH SCH ×2 (08:12→21:00)
--- NOTE | 2016-08-29 10:12 | HHI.PR ---
Subjective Remarks Follow up right buccal abscess with infected hardware 08/29/16-patient seen and examined; +oral pain, afebrile and no acute event overnight Objective Vitals Vital Signs Date Time Temp Pulse Resp B/P Pulse Ox O2 Delivery O2 Flow Rate FiO2 08/29/16 08:51 99 08/29/16 08:00 69 08/29/16 08:00 98.7 62 14 115/63 99 08/29/16 07:00 100 Room Air 08/29/16 06:00 64 08/29/16 04:00 98.2 60 15 106/56 97 08/29/16 04:00 60 08/29/16 02:00 66 08/29/16 00:00 98.2 80 20 136/83 99 08/29/16 00:00 80 08/28/16 22:00 102 08/28/16 21:36 100 21 08/28/16 20:00 100 08/28/16 20:00 99.1 100 22 151/82 99 08/28/16 19:00 100 Room Air 08/28/16 18:23 20 08/28/16 18:00 105 08/28/16 16:00 67 08/28/16 16:00 98.8 98 12 155/84 100 08/28/16 14:00 93 08/28/16 12:38 100 Nasal Cannula 3 08/28/16 12:10 Nasal Cannula 30 08/28/16 12:00 98.1 90 12 143/90 100 08/28/16 12:00 90 08/28/16 11:50 100 30 I/O 08/28/16 08/28/16 08/28/16 08/29/16 08/29/16 08/29/16 07:00 15:00 23:00 07:00 15:00 23:00 Intake Total 696 ml 184 ml 1373 ml 743 ml Output Total 800 ml 400 ml 900 ml 350 ml Balance -104 ml -216 ml 473 ml 393 ml Intake Oral 400 ml 300 ml IV Total 696 ml 184 ml 973 ml 443 ml Output Urine Total 800 ml 400 ml 900 ml 350 ml Drainage Total 0 ml 0 ml # Bowel Movements 0 0 0 Result Diagram: 08/28/1651608/28/16516 Imaging Last Impressions Chest X-Ray 08/28/16 0000 Signed Impressions: Service Date/Time: Sunday, August 28, 2016 05:36 - CONCLUSION: 1. Linear atelectatic changes in the right perihilar distribution extending up into the right upper lung. 2. No confluent infiltrate or effusion. 3. Endotracheal tube appropriately positioned above the [place] with the tip at the clavicular heads. Gamaliel Guevara MD Soft Tissue Neck X-Ray 08/27/16 0000 Signed Impressions: Service Date/Time: August 04:56 - CONCLUSION: 1. Soft tissue swelling. 2. No air way narrowing. Bud Skinner MD Objective Remarks GENERAL: NAD SKIN: Warm and dry. HEAD: Normocephalic. EYES: No scleral icterus. No injection or drainage. NECK: Supple, trachea midline. No JVD or lymphadenopathy. MOUTH: swelling right side of the face with wired moth CARDIOVASCULAR: Regular rate and rhythm without murmurs, gallops, or rubs. RESPIRATORY: Breath sounds equal bilaterally. No accessory muscle use. GASTROINTESTINAL: Abdomen soft, non-tender, nondistended. MUSCULOSKELETAL: No cyanosis, or edema. BACK: Nontender without obvious deformity. No CVA tenderness. A/P Problem List: (1) Abscess of buccal cavity ICD Code: K12.2 Status: Acute Assessment and Plan 26 years old female with Acute pain secondary to right bucchal abscess, and postoperative pain. Toradol 15-30 mg IV every 6 hours as needed for pain Dilaudid 1 mg IV every 4 hours when necessary breakthrough pain. Acute postop respiratory failure-Resolved Tobacco abuse Extubated Albuterol every 2 hours as needed f R buccal abscess with infected hardware R mandible now s/p I and D, tooth extraction , hardware removal 08/27/16 (Dr. Fenton) Leukocytosis h/o ORIF mandible 03/20/16 Dr. King Currently on Unasyn 3 g IV every 6 hours pending Infectious disease consult as well as culture reports s/p Solu Medrol 125 mill grams IV every [address] Fenton PROPH: SCDs for DVT prophylaxis. Protonix 40 mg IV daily for stress ulcer prophylaxis. Transfer to [facility] surg [facility] Bud Ponce MD Aug 29, 2016 10:12
--- NOTE | 2016-08-29 11:34 | PD.ID.CON ---
History of Present Illness Service ID Consult Requested By Dr Borrero Reason for Consult submandibular abscess Primary Care Physician No Primary Care Physician Diagnoses: History of Present Illness Pt is not cooperative with history, does not want to talk and is dosing off 26 yo female sp mandiular ORIF with plate for b/l fractures SHe developped progressive swelling and pain over the last week and was admitted to [facility] and transferred to [facility]. No fever. CT showed 3.1 x 3 x 2.7 cm abscess in the right submandibular space just inferior to the plate from prior ORIF. She underwent I&D of right mandibular abscess, extraction of tooth #32 and hardware removal by Dr. Fenton. She remained intubated overnight and was extubated yday morning. She is doing well, afebrile, toleartting abx (UNasyn) OK She thinks her pain and swelling slightly improved Her cultures are growing HEAVY GROWTH GRAM POSITIVE JOE Review of Systems ROS Limitations: Uncooperative Past Family Social History Allergies: Coded Allergies: No Known Allergies (Verified , 03/18/16) Past Medical History mandibular fracture Feb 2015 Past Surgical History Open reduction and fixation of bilateral mandibular fracture 03/20/16 2 Active Ordered Medications Medications where reviewed in EMR Antibiotics Include: Unasyn Family History Non-Contributory to current condition Social History Tobacco: Smokes 6-10 cigarettes per day Alcohol: Drinks socially about 2 times a week Illicit Drugs: Denies Physical Exam Vital Signs Vital Signs Date Time Temp Pulse Resp B/P Pulse Ox O2 Delivery O2 Flow Rate FiO2 08/29/16 10:00 65 08/29/16 08:51 99 08/29/16 08:00 69 08/29/16 08:00 98.7 62 14 115/63 99 08/29/16 07:00 100 Room Air 08/29/16 06:00 64 08/29/16 04:00 98.2 60 15 106/56 97 08/29/16 04:00 60 08/29/16 02:00 66 08/29/16 00:00 98.2 80 20 136/83 99 08/29/16 00:00 80 08/28/16 22:00 102 08/28/16 21:36 100 21 08/28/16 20:00 100 08/28/16 20:00 99.1 100 22 151/82 99 08/28/16 19:00 100 Room Air 08/28/16 18:23 20 08/28/16 18:00 105 08/28/16 16:00 67 08/28/16 16:00 98.8 98 12 155/84 100 08/28/16 14:00 93 08/28/16 12:38 100 Nasal Cannula 3 08/28/16 12:10 Nasal Cannula 30 08/28/16 12:00 98.1 90 12 143/90 100 08/28/16 12:00 90 08/28/16 11:50 100 30 Physical Exam CONSTITUTIONAL/GENERAL: This is an adequately nourished patient, in no apparent distress. TUBES/LINES/DRAINS: SKIN: No jaundice, rashes, or lesions. Ecchymoses on upper extremities. No wounds seen anteriorly. Skin temperature appropriate. Not diaphoretic. HEAD: Atraumatic. Normocephalic. EYES: Pupils equal and round and reactive. Extraocular motions intact. No scleral icterus. No injection or drainage. Fundi not examined. ENT: Hearing grossly normal. Nose without bleeding or purulent drainage. Oral mucosae pony partially visulised 2/2 limited ability of the pt to open her mouth ; mucosae is moist R side of the face lower buccal, mandubular and submandibualr area are very swollen indurated and exquisetely tender to palpation. No fluctuance small amount of odorless serosang drainage from previous draines sites NECK: Trachea midline. Supple, nontender. No palpable thyroid enlargement or nodularity. CARDIOVASCULAR: Regular rate and rhythm without murmurs, gallops, or rubs. No JVD. Peripheral pulses symmetric. RESPIRATORY/CHEST: Symmetric, unlabored respirations. Clear to auscultation. Breath sounds equal bilaterally. No wheezes, rales, or rhonchi. GASTROINTESTINAL: Abdomen soft, non-tender, nondistended. No hepato-splenomegaly , or palpable masses. No guarding. Bowel sounds present. MUSCULOSKELETAL: Extremities without clubbing, cyanosis, or edema. No mottling or clubbing. LYMPHATICS: No palpable cervical or supraclavicular adenopathy. NEUROLOGICAL: Awake and alert. Motor and sensory grossly within normal limits. Follows commands. Clear speech Moves all extremities. PSYCHIATRIC: No obvious anxiety/depression. no apparent hallucinations or other psychotic thought process. Withdrawn Laboratory Date/Time Procedure Status Source Growth 08/27/16 18:52 Gram Stain - Final Resulted Wound Other 08/27/16 18:52 Wound Culture - Preliminary Resulted Wound Other 08/27/16 18:52 Fungal Smear - Final Resulted Wound Other NO FUNGAL ELEMENTS SEEN. 08/27/16 18:52 Fungal Culture Resulted Wound Other Pending 08/27/16 18:52 Acid Fast Stain - Final Resulted Wound Other NO ACID FAST BACILLI SEEN 08/27/16 18:52 Mycobacterial Culture Resulted Wound Other Pending Result Diagram: 08/28/1651608/28/16516 Imaging Last Impressions Chest X-Ray 08/28/16 0000 Signed Impressions: Service Date/Time: Sunday, August 28, 2016 05:36 - CONCLUSION: 1. Linear atelectatic changes in the right perihilar distribution extending up into the right upper lung. 2. No confluent infiltrate or effusion. 3. Endotracheal tube appropriately positioned above the [place] with the tip at the clavicular heads. Gamaliel Guevara MD Soft Tissue Neck X-Ray 08/27/16 0000 Signed Impressions: Service Date/Time: August 04:56 - CONCLUSION: 1. Soft tissue swelling. 2. No air way narrowing. Bud Skinner MD Assessment and Plan Assessment and Plan R buccal abscess with infected hardware R mandible now s/p I and D, tooth extraction , hardware removal 08/27/[address] Fenton - clx growing vir strep - bone appeared healthy intra-op Leukocytosis 2/2 infection; increasing ? Solumedrol contributing Rec's: - cont Unasyn 3 g IV every 6 hours, - will follow clx Anticipate at least 4 weeks abx post op 2/2 hardware involved anticipate d/c on po abx Clare Meade MD Aug 29, 2016 11:34
[2016-08-29] MEDS: KETOROLAC TROMETHAMINE 30 MG/ML (IVP) VIAL IVP PRN ×2 (12:24→21:46)
[2016-08-29] MEDS: D5-1/2 NS + KCL 20 MEQ INJ 1,000 ML IV SCH (16:23)
[2016-08-30] VITALS: BP 116/73; PULSE 74; RESP 20; TEMP 97.4; O2SAT 98
[2016-08-30] MEDS: AMPICILLIN-SULBACTAM INJ 3 GM in SODIUM CHLORIDE 0.9% INJ 100 ML IV SCH ×4 (03:26→21:46)
[2016-08-30] MEDS: KETOROLAC TROMETHAMINE 30 MG/ML (IVP) VIAL IVP PRN ×2 (06:31→17:51)
[2016-08-30] MEDS: INSULIN ASPART SUPPLEMENTAL SCALE SQ SCH ×4 (06:34→21:00)
[2016-08-30 08:00] VITALS: BP 107/71; PULSE 73; RESP 18; TEMP 95.6; O2SAT 98
[2016-08-30] MEDS: PANTOPRAZOLE SOD 40 MG DELAYED RELEASE TAB PO SCH (08:25)
[2016-08-30] MEDS: SODIUM CHLORIDE 0.9% FLUSH 10 ML FLUSH IV FLUSH SCH ×2 (08:26→21:54)
[2016-08-30] MEDS: CHLORHEXIDINE GLUCONATE 0.12% 15 ML CUP SWISH-SPIT SCH ×2 (08:27→21:00)
--- NOTE | 2016-08-30 09:00 | HHI.PR ---
Subjective Remarks POD 3 s/p removal of failed hardware right mandible angle, extraction of tooth #32, I&D right submandibular space abscess CR right mandible angle fracture pt seen and examined, nurse at bedside transferred to regular floor yesterday, ambulating, tolerating po denies f/c/n/v/sob/difficulty breathing no acute overnight events Objective Vital Signs Date Time Temp Pulse Resp B/P Pulse Ox O2 Delivery O2 Flow Rate FiO2 08/30/16 08:00 95.6 73 18 107/71 98 08/30/16 00:00 97.4 74 20 116/73 98 08/29/16 20:00 97.7 74 20 117/72 98 08/29/16 19:00 98 Room Air 08/29/16 18:03 99 21 08/29/16 16:00 97.1 80 17 115/76 100 08/29/16 12:00 97.4 61 16 135/90 99 08/29/16 10:00 65 I/O 08/29/16 08/29/16 08/29/16 08/30/16 08/30/16 08/30/16 07:00 15:00 23:00 07:00 15:00 23:00 Intake Total 743 ml 480 ml 1158 ml Output Total 350 ml 500 ml 500 ml Balance 393 ml -20 ml 658 ml Intake Oral 300 ml 480 ml 240 ml IV Total 443 ml 918 ml Output Urine Total 350 ml 500 ml 500 ml Drainage Total 0 ml # Voids 3 # Bowel Movements 0 0 0 Result Diagram: 08/28/1651608/28/16516 Objective Remarks neck dressing in place neck softer, residual edema noted, trach midline facial edema decreasing intraorally, tissues pink/well perfused bite in occlusion IMF wires.arch bars in position no active discharge/heme wire cutters at bedside GRAM STAIN Final 08/28/16 MANY WBC'S LIGHT MIXED JOE WITH NO PREDOMINANT MORPHOLOGY WOUND CULTURE Final 08/30/16 HEAVY GROWTH VIRIDANS STREPTOCOCCUS GRP (PRESUMPTIVE ID) - 2 DIFFERENT MORPHOLOGIES NO FURTHER WORKUP Isolate(s) held in Microbiology lab for 5 days. For further workup, please call the lab [phone]. NO ANAEROBES ISOLATED WOUND CULTURE Preliminary (changed) 08/29/16 HEAVY GROWTH GRAM POSITIVE JOE - FURTHER ID TO FOLLOW NO ANAEROBES ISOLATED WOUND CULTURE Preliminary (changed) 08/28/16 NO GROWTH IN 24 HOURS. Assessment and Plan Assessment and Plan POD3 s/p removal of failed hardware right mandible angle, extraction of tooth #32, I&D right submandibular space abscess CR right mandible lola fracture Clinically appears better can brush teeth GRAM STAIN Final 08/28/16-855 MANY WBC'S LIGHT MIXED JOE WITH NO PREDOMINANT MORPHOLOGY WOUND CULTURE Final 08/30/16 HEAVY GROWTH VIRIDANS STREPTOCOCCUS GRP (PRESUMPTIVE ID) - 2 DIFFERENT MORPHOLOGIES NO FURTHER WORKUP Isolate(s) held in Microbiology lab for 5 days. For further workup, please call the lab [phone]. NO ANAEROBES ISOLATED WOUND CULTURE Preliminary (changed) 08/29/16 HEAVY GROWTH GRAM POSITIVE JOE - FURTHER ID TO FOLLOW NO ANAEROBES ISOLATED WOUND CULTURE Preliminary (changed) 08/28/16 NO GROWTH IN 24 HOURS. Infectious diseases consult noted, d/w dr colon keep wire cutters at bedside d/w pt the importance of being compliant with our recommendations, risk of recurrent infection/further surgery/ if non compliant continue abx plan for d/c tomorrow will follow Shaun Fenton DMD Aug 30, 2016 09:00
--- NOTE | 2016-08-30 11:16 | HHI.PR ---
Subjective Remarks Follow up right buccal abscess with infected hardware 08/29/16-patient seen and examined; +oral pain, afebrile and no acute event overnight 08/30/16-patient seen and examined, afebrile, no acute event overnight. Objective Vitals Vital Signs Date Time Temp Pulse Resp B/P Pulse Ox O2 Delivery O2 Flow Rate FiO2 08/30/16 08:00 95.6 73 18 107/71 98 08/30/16 00:00 97.4 74 20 116/73 98 08/29/16 20:00 97.7 74 20 117/72 98 08/29/16 19:00 98 Room Air 08/29/16 18:03 99 21 08/29/16 16:00 97.1 80 17 115/76 100 08/29/16 12:00 97.4 61 16 135/90 99 I/O 08/29/16 08/29/16 08/29/16 08/30/16 08/30/16 08/30/16 07:00 15:00 23:00 07:00 15:00 23:00 Intake Total 743 ml 480 ml 1158 ml Output Total 350 ml 500 ml 500 ml Balance 393 ml -20 ml 658 ml Intake Oral 300 ml 480 ml 240 ml IV Total 443 ml 918 ml Output Urine Total 350 ml 500 ml 500 ml Drainage Total 0 ml # Voids 3 # Bowel Movements 0 0 0 Result Diagram: 08/28/1651608/28/16516 Objective Remarks GENERAL: NAD SKIN: Warm and dry. HEAD: Normocephalic. EYES: No scleral icterus. No injection or drainage. NECK: Supple, trachea midline. No JVD or lymphadenopathy. MOUTH: swelling right side of the face with wired moth CARDIOVASCULAR: Regular rate and rhythm without murmurs, gallops, or rubs. RESPIRATORY: Breath sounds equal bilaterally. No accessory muscle use. GASTROINTESTINAL: Abdomen soft, non-tender, nondistended. MUSCULOSKELETAL: No cyanosis, or edema. BACK: Nontender without obvious deformity. No CVA tenderness. Procedures s/p I and D, tooth extraction , hardware removal 08/27/16 A/P Problem List: (1) Abscess of buccal cavity ICD Code: K12.2 Status: Acute Assessment and Plan 26 years old female with Acute pain secondary to right bucchal abscess, and postoperative pain. Toradol 15-30 mg IV every 6 hours as needed for pain Dilaudid 1 mg IV every 4 hours when necessary breakthrough pain. Acute postop respiratory failure-Resolved Tobacco abuse Albuterol every 2 hours as needed R buccal abscess with infected hardware R mandible now s/p I and D, tooth extraction , hardware removal 08/27/16 (Dr. Fenton) Leukocytosis h/o ORIF mandible 03/20/16 Dr. King Currently on Unasyn 3 g IV every 6 hours Continue Peridex Appreciate input from infectious disease specialist Wound culture positive for [place] strep PROPH: SCDs for DVT prophylaxis. Protonix 40 mg IV daily for stress ulcer prophylaxis. Bud Ponce MD Aug 30, 2016 11:15
[2016-08-30] MEDS: D5-1/2 NS + KCL 20 MEQ INJ 1,000 ML IV SCH (11:51)
[2016-08-30 12:00] VITALS: BP 100/71; PULSE 69; RESP 18; TEMP 95.5; O2SAT 98
[2016-08-30 16:00] VITALS: BP 123/79; PULSE 72; RESP 18; TEMP 95.7; O2SAT 99
[2016-08-30 20:00] VITALS: BP 112/67; PULSE 80; RESP 18; TEMP 97.5; O2SAT 98
[2016-08-31] VITALS: BP 125/82; PULSE 62; RESP 18; TEMP 96.6; O2SAT 96
[2016-08-31] MEDS: KETOROLAC TROMETHAMINE 30 MG/ML (IVP) VIAL IVP PRN ×2 (00:42→17:52)
[2016-08-31] MEDS ORDERED: diphenhydrAMINE HCL 50 MG/ML VIAL IV PUSH ONE (01:00)
[2016-08-31] MEDS: AMPICILLIN-SULBACTAM INJ 3 GM in SODIUM CHLORIDE 0.9% INJ 100 ML IV SCH ×3 (01:21→15:27)
[2016-08-31] MEDS: INSULIN ASPART SUPPLEMENTAL SCALE SQ SCH ×3 (06:28→15:41)
--- NOTE | 2016-08-31 07:29 | HHI.PR ---
Subjective Remarks POD 4 s/p removal of failed hardware right mandible angle, extraction of tooth #32, I&D right submandibular space abscess CR right mandible angle fracture pt seen and examined, nurses at bedside ambulating, tolerating po denies f/c/n/v/sob/difficulty breathing no acute overnight events refuses am labs to be drawn this morning Objective Vital Signs Date Time Temp Pulse Resp B/P Pulse Ox O2 Delivery O2 Flow Rate FiO2 08/31/16 00:00 96.6 62 18 125/82 96 08/30/16 20:00 97.5 80 18 112/67 98 08/30/16 19:00 96 Room Air 08/30/16 16:00 95.7 72 18 123/79 99 08/30/16 12:00 95.5 69 18 100/71 98 08/30/16 08:00 95.6 73 18 107/71 98 I/O 08/30/16 08/30/16 08/30/16 08/31/16 08/31/16 08/31/16 07:00 15:00 23:00 07:00 15:00 23:00 Intake Total 1158 ml 540 ml 240 ml 320 ml Output Total 500 ml 500 ml Balance 658 ml 540 ml 240 ml -180 ml Intake Oral 240 ml 540 ml 240 ml 320 ml IV Total 918 ml Output Urine Total 500 ml 500 ml # Voids 3 1 # Bowel Movements 0 0 0 0 Result Diagram: 08/28/1651608/28/16516 Objective Remarks right face/neck softer, residual edema noted, trach midline facial edema decreasing, no collection palpable intraorally, tissues pink/well perfused bite in occlusion IMF wires.arch bars in position no active discharge/heme wire cutters at bedside GRAM STAIN Final 08/28/16-855 MANY WBC'S LIGHT MIXED JOE WITH NO PREDOMINANT MORPHOLOGY WOUND CULTURE Final 08/30/16 HEAVY GROWTH VIRIDANS STREPTOCOCCUS GRP (PRESUMPTIVE ID) - 2 DIFFERENT MORPHOLOGIES NO FURTHER WORKUP Isolate(s) held in Microbiology lab for 5 days. For further workup, please call the lab [phone]. NO ANAEROBES ISOLATED WOUND CULTURE Preliminary (changed) 08/29/16-0930 HEAVY GROWTH GRAM POSITIVE JOE - FURTHER ID TO FOLLOW NO ANAEROBES ISOLATED WOUND CULTURE Preliminary (changed) 08/28/16-1402 NO GROWTH IN 24 HOURS. Assessment and Plan Assessment and Plan POD4 s/p removal of failed hardware right mandible angle, extraction of tooth #32, I&D right submandibular space abscess CR right mandible lola fracture Clinically appears better, afebrile, VSS can brush teeth GRAM STAIN Final 08/28/16-56 MANY WBC'S LIGHT MIXED JOE WITH NO PREDOMINANT MORPHOLOGY WOUND CULTURE Final 08/30/16-835 HEAVY GROWTH VIRIDANS STREPTOCOCCUS GRP (PRESUMPTIVE ID) - 2 DIFFERENT MORPHOLOGIES NO FURTHER WORKUP Isolate(s) held in Microbiology lab for 5 days. For further workup, please call the lab [phone]. NO ANAEROBES ISOLATED WOUND CULTURE Preliminary (changed) 08/29/16-929 HEAVY GROWTH GRAM POSITIVE JOE - FURTHER ID TO FOLLOW NO ANAEROBES ISOLATED WOUND CULTURE Preliminary (changed) 08/28/16-140 NO GROWTH IN 24 HOURS. Advised pt to have am labs OK to d/c to home form OMS standpoint send pt home with wire cutters (wire cutters are at bedside) d/w pt the importance of being compliant with our recommendations, risk of recurrent infection/further surgery/ if non compliant continue abx, ID for liquid antibiotics when discharged full liquid diet maintain good oral hygiene f/up [facility], call [phone] rx hydrocodone 7.5/325 per 15ml, disp #200, 15 ml po q 6 h prn pain Shaun Fenton DMD Aug 31, 2016 07:29
[2016-08-31 08:00] VITALS: BP 123/69; PULSE 65; RESP 20; TEMP 96.9; O2SAT 98
[2016-08-31] MEDS: CHLORHEXIDINE GLUCONATE 0.12% 15 ML CUP SWISH-SPIT SCH (08:03)
[2016-08-31] MEDS: PANTOPRAZOLE SOD 40 MG DELAYED RELEASE TAB PO SCH (08:03)
[2016-08-31] MEDS: SODIUM CHLORIDE 0.9% FLUSH 10 ML FLUSH IV FLUSH SCH (08:04)
[2016-08-31] MEDS: D5-1/2 NS + KCL 20 MEQ INJ 1,000 ML IV SCH (08:04)
[2016-08-31 12:00] VITALS: BP 107/68; PULSE 61; RESP 20; TEMP 96.8; O2SAT 97
--- NOTE | 2016-08-31 13:37 | HHI.PR ---
Subjective Remarks Follow up right buccal abscess with infected hardware 08/29/16-patient seen and examined; +oral pain, afebrile and no acute event overnight 08/30/16-patient seen and examined, afebrile, no acute event overnight. 08/31/16-patient seen and examined, patient refused this a.m. to have lab drawn. Complains of oral pain otherwise afebrile. Objective Vitals Vital Signs Date Time Temp Pulse Resp B/P Pulse Ox O2 Delivery O2 Flow Rate FiO2 08/31/16 12:00 96.8 61 20 107/68 97 08/31/16 08:00 96.9 65 20 123/69 98 08/31/16 00:00 96.6 62 18 125/82 96 08/30/16 20:00 97.5 80 18 112/67 98 08/30/16 19:00 96 Room Air 08/30/16 16:00 95.7 72 18 123/79 99 I/O 08/30/16 08/30/16 08/30/16 08/31/16 08/31/16 08/31/16 07:00 15:00 23:00 07:00 15:00 23:00 Intake Total 1158 ml 540 ml 240 ml 320 ml Output Total 500 ml 500 ml Balance 658 ml 540 ml 240 ml -180 ml Intake Oral 240 ml 540 ml 240 ml 320 ml IV Total 918 ml Output Urine Total 500 ml 500 ml # Voids 3 1 # Bowel Movements 0 0 0 0 Result Diagram: 08/28/1651608/28/16516 Objective Remarks GENERAL: NAD SKIN: Warm and dry. HEAD: Normocephalic. EYES: No scleral icterus. No injection or drainage. NECK: Supple, trachea midline. No JVD or lymphadenopathy. MOUTH: swelling right side of the face with wired moth CARDIOVASCULAR: Regular rate and rhythm without murmurs, gallops, or rubs. RESPIRATORY: Breath sounds equal bilaterally. No accessory muscle use. GASTROINTESTINAL: Abdomen soft, non-tender, nondistended. MUSCULOSKELETAL: No cyanosis, or edema. BACK: Nontender without obvious deformity. No CVA tenderness. Procedures s/p I and D, tooth extraction , hardware removal 08/27/16 A/P Problem List: (1) Abscess of buccal cavity ICD Code: K12.2 Status: Acute Assessment and Plan 26 years old female with Acute pain secondary to right bucchal abscess, and postoperative pain. Toradol 15-30 mg IV every 6 hours as needed for pain Dilaudid 1 mg IV every 4 hours when necessary breakthrough pain. Acute postop respiratory failure-Resolved Tobacco abuse Albuterol every 2 hours as needed R buccal abscess with infected hardware R mandible now s/p I and D, tooth extraction , hardware removal 08/27/16 (Dr. Fenton) Leukocytosis h/o ORIF mandible 03/20/16 Dr. King Currently on Unasyn 3 g IV every 6 hours and will need by mouth antibiotic on discharge today Continue Peridex Appreciate input from infectious disease specialist Wound culture positive for Vir[place] strep PROPH: SCDs for DVT prophylaxis. Protonix 40 mg IV daily for stress ulcer prophylaxis. Bud Ponce MD Aug 31, 2016 13:37
--- NOTE | 2016-08-31 13:40 | HHI.DS ---
Discharge Summary Admission Date Aug 27, 2016 at 04:30 Discharge Date: Aug 31, 2016 Admitting Diagnosis buccal space abscess histiory of jaW FRACTURE (1) Abscess of buccal cavity ICD Code: K12.2 Procedures s/p I and D, tooth extraction , hardware removal 08/27/16 Brief History - From Admission 26-year-old female with a recent surgical history for bilateral mandibular fracture status post ORIF 03/20/16 was transfer from an outside facility to [facility] for evaluation of right facial swelling and buccal space abscess. Patient is stated at on 08/21/16 she noticed right facial swelling along with oral pain however the following day she had worsening facial swelling associated with drooling and severe pain rated 8/10 in intensity , which was not relieved with ibuprofen. She denies any febrile episode but had decrease appetite. Patient is currently nothing by mouth pending further evaluation for oromaxillofacial surgery plan to take her in for I&D. She has no other issues CBC/BMP: 08/28/16 0517 08/28/16 0517 PE at Discharge GENERAL: NAD SKIN: Warm and dry. HEAD: Normocephalic. EYES: No scleral icterus. No injection or drainage. NECK: Supple, trachea midline. No JVD or lymphadenopathy. MOUTH: swelling right side of the face with wired moth CARDIOVASCULAR: Regular rate and rhythm without murmurs, gallops, or rubs. RESPIRATORY: Breath sounds equal bilaterally. No accessory muscle use. GASTROINTESTINAL: Abdomen soft, non-tender, nondistended. MUSCULOSKELETAL: No cyanosis, or edema. BACK: Nontender without obvious deformity. No CVA tenderness. Hospital Course Patient admitted with R buccal abscess with infected hardware R mandible for which oral surgeon was consulted and she underwent I and D, tooth extraction , hardware removal 08/27/16. She was treated with IV antibiotics as well as pain management. Infectious disease specialist was consulted and patient will be discharged home on by mouth antibiotic. Pt Condition on Discharge: Stable Discharge Disposition: Discharge Home Discharge Time: <= 30 minutes Bud Ponce MD Aug 31, 2016 13:40
[2016-08-31] MEDS ORDERED: PERI0.126 SWISH-SPIT (13:42)
[2016-08-31 16:00] VITALS: BP 143/99; PULSE 75; RESP 20; TEMP 96.9; O2SAT 99
[2016-08-31] MEDS ORDERED: AUGM250S2 PO (16:59)
[2016-08-31] MEDS ORDERED: AMOXICILLIN/CLAVUL SUSP 250 MG/5 ML 100 ML BTL PO SCH (17:00)
--- NOTE | 2016-08-31 17:07 | HHI.IDPN ---
Subjective Subjective Remarks doing better no fever able to take liquid diet Antibiotics unasyn Allergies: Coded Allergies: No Known Allergies (Verified , 03/18/16) Objective . Vital Signs Date Time Temp Pulse Resp B/P Pulse Ox O2 Delivery O2 Flow Rate FiO2 08/31/16 12:00 96.8 61 20 107/68 97 08/31/16 08:00 96.9 65 20 123/69 98 08/31/16 00:00 96.6 62 18 125/82 96 08/30/16 20:00 97.5 80 18 112/67 98 08/30/16 19:00 96 Room Air 08/30/16 08/30/16 08/31/16 15:00 23:00 07:00 Intake Total 540 ml 240 ml 320 ml Output Total 500 ml Balance 540 ml 240 ml -180 ml Intake Oral 540 ml 240 ml 320 ml Output Urine Total 500 ml # Voids 3 1 # Bowel Movements 0 0 0 Imaging Last Impressions Chest X-Ray 08/28/16 0000 Signed Impressions: Service Date/Time: Sunday, August 28, 2016 05:36 - CONCLUSION: 1. Linear atelectatic changes in the right perihilar distribution extending up into the right upper lung. 2. No confluent infiltrate or effusion. 3. Endotracheal tube appropriately positioned above the [place] with the tip at the clavicular heads. Gamaliel Guevara MD Soft Tissue Neck X-Ray 08/27/16 0000 Signed Impressions: Service Date/Time: August 04:56 - CONCLUSION: 1. Soft tissue swelling. 2. No air way narrowing. Bud Skinner MD Physical Exam GENERAL: no acute distress SKIN: No jaundice, rashes, or lesions. Ecchymoses on upper extremities. No wounds seen anteriorly. Skin temperature appropriate. Not diaphoretic. ENT: Hard swelling on the R side of the face involving lower buccal, mandubular and submandibualr area less tender to palpation. No fluctuance NECK: Trachea midline. Supple, nontender. No palpable thyroid enlargement or nodularity. CARDIOVASCULAR: Regular rate and rhythm without murmurs, gallops, or rubs. RESPIRATORY/CHEST: Symmetric, unlabored respirations. Clear to auscultation. Breath sounds equal bilaterally. GASTROINTESTINAL: Abdomen soft, non-tender, nondistended. N No guarding. Bowel sounds present. MUSCULOSKELETAL: Extremities without clubbing, cyanosis, or edema. NEUROLOGICAL: Awake and alert. Non focal Assessment & Plan Remarks R buccal abscess with infected hardware R mandible now s/p I and D, tooth extraction , hardware removal 08/27/[address] Fenton - dw Dr Fenton: plate was loose, but bomne looked healthy - clx growing vir strep - bone appeared healthy intra-op Leukocytosis 2/2 infection; increasing ? Solumedrol contributing - no e/o other infx e.i. PNA Rec's: dc Unasyn 3 g IV every 6 hours, lquid augmentin x 30 days Script e- entered and printerd and given to the nurse Pt is OK to go home Dw Eliceo Chance and Clare Arguello MD Aug 31, 2016 17:07
== END 2016-08-31 18:41 | disposition home or self-care (01) | DRG 131 ==
LOC: NEPC 02:54 → NEDA 04:30 → N04B 11:53 → N03B 20:21 → N07A 08-29 11:51
PROVIDERS: ADMIT Hospitalist; ATTEND Hospitalist
PROC: 0W950ZX Drainage of Lower Jaw, Open Approach, Diagnostic (ICD-10-PCS; principal; 2016-08-27 16:17)
PROC: 0NPW04Z Removal of Internal Fixation Device from Facial Bone, Open Approach (ICD-10-PCS; 2016-08-27 16:17)
PROC: 0CDXXZ0 Extraction of Lower Tooth, Single, External Approach (ICD-10-PCS; 2016-08-27 16:17)
PROC: 5A0935Z Assistance with Respiratory Ventilation, Less than 24 Consecutive Hours (ICD-10-PCS; 2016-08-27 16:17)
DX: K12.2 Cellulitis and abscess of mouth (principal); J95.821 Acute postprocedural respiratory failure; T84.89XA Other specified complication of internal orthopedic prosthetic devices, implants and grafts, initial encounter; F17.210 Nicotine dependence, cigarettes, uncomplicated; K02.9 Dental caries, unspecified; Z91.19 Patient's noncompliance with other medical treatment and regimen; G89.18 Other acute postprocedural pain; Y83.1 Surgical operation with implant of artificial internal device as the cause of abnormal reaction of the patient, or of later complication, without mention of misadventure at the time of the procedure
CPT/HCPCS: 36600; 70360; 71010; 80048; 80053; 82805; 82948; 83605; 85025; 87015; 87070; 87102; 87116; 87205; 87206; 94002; 94003; J0131; J0295; J1040; J1100; J1170; J1200; J1815; J1885; J2250; J2370; J2405; J2543; J2710; J2930; J3010; J3370; J3480; J7050

== ENCOUNTER 2017-08-02 15:17 | Emergency (ER) | payer SELFPAY ==
[~2017-08-02] VITALS: Ht 165.1 cm; Wt 80.0 kg
[~2017-08-02 15:17] MED LIST changes: +AUGM250S2 PO; -HYDR1ELX PO; +PERI0.126 SWISH-SPIT
[2017-08-02 15:45] VITALS: BP 154/92; PULSE 75; RESP 16; TEMP 98.3; O2SAT 100
== END 2017-08-02 16:00 | disposition left against medical advice (07) ==
LOC: NED 15:17
DX: H57.9 Unspecified disorder of eye and adnexa (principal)
CPT/HCPCS: 99281